=== PATIENT | female | born 2005 | race Caucasian/White ===

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

== ENCOUNTER 2023-08-31 12:41 | Emergency (ER) | payer OTHER, SELFPAY ==
--- NOTE | 2023-08-31 12:56 | ED.FEMALEGU ---
HPI - Female Genitourinary General Chief complaint: Urogenital-Female Stated complaint: Uti symptoms Time Seen by Provider: 08/31/23 13:11 Source: patient, RN notes reviewed and old records reviewed Mode of arrival: ambulatory Limitations: no limitations History of Present Illness HPI Narrative: 18 year old female who presents to [facility] care with complaints of urinary frequency ,urgency, burning with urination for the past week with some intermittent itchy sensation of vagina and painful sex.. Patient reports no known fevers, chills or sweats, denies any nausea or vomiting or any back pain or any suprapubic tenderness. Patient reports no concern for STD has been with same partner. MD elicited complaint: UTI Onset (ago): week(s) (1) Location of symptoms: urethra and vaginal Severity: moderate Severity scale (1-10): 5 Quality of pain: burning Urinary symptoms: Dysuria, Urgency and Frequency Treatment prior to arrival: none Sexual activity: Yes Related Data Allergies Allergy/AdvReac Type Severity Reaction Status Date / Time No Known Drug Allergies Allergy Unknown Other Verified 08/31/23 12:59 Review of Systems Review of Systems: CONSTITUTIONAL: Denies fever, chills, or sweats. CARDIOVASCULAR: Denies chest pain, palpitations, or edema. RESPIRATORY: Denies cough or dyspnea. GASTROINTESTINAL: Denies abdominal pain, nausea, vomiting, or diarrhea. GENITOURINARY: Reports dysuria, frequency, urgency. Denies flank pain or hematuria.reports some vaginal itching and painful intercourse SKIN: Denies rash or itching. MUSCULOSKELETAL: Denies back pain or myalgia. Denies CVA tenderness NEUROLOGIC: Denies headache All systems reviewed & are unremarkable except as noted in HPI and below PMFSH Past Medical History Medical History (Updated 08/31/23 @ 18:56 by Josseline York NP) Anxiety Arrhythmia as child cleared by [facility] Asthma age 1 1/2 Ear infection Meningitis Surgical History Surgical History (Updated 08/31/23 @ 18:55 by Josseline York NP) History of placement of ear tubes Social History Social History Smoking status: Current every day smoker Tobacco type: e-cigarettes/vaping Alcohol intake: never Substance use type: does not use Gender identity (if verbalized by the patient): Female Comments At time of signature, agree with nursing past medical, surgical, social and family history. There is no relevant family history pertinent to the presenting complaint Exam Narrative: GENERAL: Well-appearing, well-nourished, and in no acute distress. HEAD: Normocephalic, atraumatic. NECK: Supple.no lymphadenopathy CHEST: Clear to auscultation. No respiratory distress.SAO2 99% on room air HEART: Regular rate and rhythm. No murmur heard. Normal peripheral pulses. ABDOMEN: Soft, nontender, nondistended, normal active bowel sounds. No CVA tenderness, vaginal itchy , burning with urination, urinary frequency and urgency foul odor of urine noted see urine report. EXTREMITIES: Normal range of motion. No edema. SKIN: Warm, dry, no rash. NEURO: No focal deficits. Alert and oriented x3. Course Course Emergency Course: Patient is aware of diagnosis, understands and agrees to treatment plan.? Anticipatory guidance given.? Patient agrees to follow-up as directed and is aware of reasons to seek care at the emergency department. Portions of this record may have been created with voice recognition software Level of Care: Express Care Visit Vital Signs Vital signs: Vital Signs Temperature 36.7 C 08/31/23 13:01 Pulse Rate 85 08/31/23 13:01 Respiratory Rate 20 08/31/23 13:01 Blood Pressure 113/81 08/31/23 13:01 Pulse Oximetry 99 08/31/23 13:01 Temperature 36.7 C 08/31/23 13:01 Pulse Rate 85 08/31/23 13:01 Respiratory Rate 20 08/31/23 13:01 Blood Pressure 113/81 08/31/23 13:01 Pulse Oximetry 99 08/31/23 13:01
[2023-08-31 13:01] VITALS: BP 113/81; PULSE 85; RESP 20; TEMP 36.7; O2SAT 99
== END 2023-08-31 13:31 | disposition home or self-care (01) ==
PROVIDERS: Emergency Provider Registered Nurse
DX: N39.0 Urinary tract infection, site not specified (principal); B96.20 Unspecified Escherichia coli [E. coli] as the cause of diseases classified elsewhere; F17.290 Nicotine dependence, other tobacco product, uncomplicated
CPT/HCPCS: 81003; 87077; 87086; 87186; 99213; G0463

== ENCOUNTER 2023-10-20 01:25 | Emergency (ER) | payer OTHER, SELFPAY ==
--- NOTE | ~2023-10-20 | XR_ITS ---
Portable chest x-ray Comparison: None Clinical History: Palpitations Findings: Lungs are clear, without focal consolidation or pleural effusion. Cardiomediastinal silho uette is unremarkable. Bones and soft tissues are unremarkable. Impression: Normal chest. Reviewed, dictated and finalized at location . Impression: Normal chest.
[2023-10-20 01:37] VITALS: BP 94/76; PULSE 108; RESP 16; TEMP 36.6; O2SAT 100
--- NOTE | 2023-10-20 01:44 | PC.NURSE ---
Patient states that she used her friends THC vape, but not sure where her friend got the vape from. Patient states that she has used the vape before.
--- NOTE | 2023-10-20 02:06 | ECG_ITS ---
SEE SCANNED COPY FOR CONFIRMED REPORT MTDD
[2023-10-20] MEDS: LORazepam (*CRX) 1 MG TABLET PO (02:15)
--- NOTE | 2023-10-20 02:32 | ED.GENADULT ---
HPI - General Adult General Chief complaint: Anxiety Stated complaint: panic attack Time Seen by Provider: 10/20/23 01:59 History of Present Illness HPI narrative: this is a 18-year-old female with a history of anxiety presenting for a panic attack. Patient was smoking marijuana when she started developed palpitations and shortness of breath. This feels similar to previous anxiety attacks she has had. Symptoms have improved but she still feels very anxious. Patient denies current chest pain, shortness of breath, lower extremity edema or DVT/PE. Related Data Allergies Allergy/AdvReac Type Severity Reaction Status Date / Time No Known Drug Allergies Allergy Unknown Other Verified 08/31/23 12:59 [facility] Past Medical History Medical History Anxiety Arrhythmia as child cleared by [facility] Ast[facility] age 1 1/2 Ear infection Meningitis Surgical History Surgical History History of placement of ear tubes Social History Social History Smoking status: Current every day smoker Tobacco type: e-cigarettes/vaping Alcohol intake: never Substance use type: marijuana Gender identity (if verbalized by the patient): Female Exam Narrative: APPEARANCE: anxious Head: atraumatic. EYES: EOMI, NOSE: Atraumatic NECK: Trachea midline RESPIRATORY: No increased rate of breathing CTAB CARDIOVASCULAR: RRR, ABDOMINAL: Non-distended MUSCULOSKELETAl: No obvious deformities NEURO: Alert. Moving 4/4 extremities SKIN:: Warm, dry. Normal color PSYCHIATRIC: anxious appearing Course Vital Signs Vital signs: Vital Signs Temperature 97.9 F 10/20/23 01:37 Pulse Rate 108 H 10/20/23 01:37 Respiratory Rate 16 10/20/23 01:37 Blood Pressure 94/76 L 10/20/23 01:37 Pulse Oximetry 100 10/20/23 01:37 Temperature 97.9 F 10/20/23 01:37 Pulse Rate 108 H 10/20/23 01:37 Respiratory Rate 16 10/20/23 01:37 Blood Pressure 94/76 L 10/20/23 01:37 Pulse Oximetry 100 10/20/23 01:37 Medical Decision Making MDM Narrative Medical decision making narrative: -Course: 18-year-old female presenting with anxiety attack after smoking marijuana. Chest x-ray and EKG unremarkable. Given Ativan with improvement symptoms. Patient discharge instructions stop smoking marijuana. Primary care follow-up return precautions given. -DDX includes but is not limited to: Marijuana overdose, anxiety, panic disorder -Co-morbidities complicating care: anxiety and depression -Independent interpretation of studies: EKG reviewed. Chest x-ray unremarkable. -Interventions: 1 mg p.o. Ativan -Shared decision making / Disposition: discharge Vital Signs Vital Signs: Vital Signs Temperature 97.9 F 10/20/23 01:37 Pulse Rate 108 H 10/20/23 01:37 Respiratory Rate 16 10/20/23 01:37 Blood Pressure 94/76 L 10/20/23 01:37 Pulse Oximetry 100 10/20/23 01:37 Temperature 97.9 F 10/20/23 01:37 Pulse Rate 108 H 10/20/23 01:37 Respiratory Rate 16 10/20/23 01:37 Blood Pressure 94/76 L 10/20/23 01:37 Pulse Oximetry 100 10/20/23 01:37 Discharge Plan Discharge Clinical Impression: Anxiety Patient Disposition: Home, Self-Care Condition: Stable Instructions: Antibiotic Form, Anxiety (ED) Additional Instructions: please follow-up with your primary care physician. Return if you develop another panic attack or thoughts of harming herself. Please refrain from using marijuana as it does not seem that you tolerate it very well. Prescriptions: No Action nitrofurantoin monohyd/m-cryst [Macrobid] 100 mg capsule 100 mg PO Q12H 7 Days Qty: 14 0RF Rx Instructions: must administer with a meal/food fluconazole 150 mg tablet 150 mg PO ONCE Qty: 2 0RF Rx Instructions: take one tab then repeat in 72 hours i
[2023-10-20 02:35] VITALS: BP 131/87; PULSE 100; RESP 16; O2SAT 100
== END 2023-10-20 02:39 | disposition home or self-care (01) ==
PROVIDERS: Emergency Provider Emergency Medicine
DX: F41.9 Anxiety disorder, unspecified (principal); J45.909 Unspecified asthma, uncomplicated; F17.290 Nicotine dependence, other tobacco product, uncomplicated
CPT/HCPCS: 71045; 93005; 99283; A9270

== ENCOUNTER 2023-11-22 15:59 | Outpatient (CLI) | payer OTHER, SELFPAY ==
[2023-11-22 19:26] LABS: Basophils Percent Auto 0.3 % (0.2-1.2); Eosinophils Absolute Auto 0.1 K/mm3 (0-0.3); Eosinophils Percent Auto 0.5 % (0-4.4); Hematocrit 44.7 % (37.0-47.0); Immature Granulocyte Absolute 0.02 K/mm3 (0.00-0.031); Immature Granulocyte Percent A 0.2 % (0-0.5); Lymphocytes Absolute Auto 1.81 K/mm3 (0.9-3.2); Lymphocytes Percent Auto 19.8 % (18.3-44.2); Mean Corpuscular HGB Conc 33.6 g/dl (32-36); Mean Corpuscular Hemoglobin 32.1 pg (26-34); Mean Corpuscular Volume 95.5 fl (80-100); Mean Platelet Volume 10.8 fl (7.4-10.4); Monocytes Absolute Auto 0.6 K/mm3 (0.1-0.6); Monocytes Percent Auto 6.9 % (2.6-8.5); Neutrophils Absolute Auto 6.6 K/mm3 (1.3-6.7); Neutrophils Percent Auto 72.3 % (45.5-73.1); Platelet Count Result 233 k/mm3 (150-375); Red Blood Count 4.68 M/mm3 (4.2-5.4); Red Cell Distribution Width 12.6 % (11.5-14.5); White Blood Count 9.1 K/mm3 (4.5-10.0)
[2023-11-22 19:46] LABS: Thyroid Stimulating Hormone Reflex 0.668 uIU/mL (0.465-4.68)
== END 2023-11-22 16:00 | disposition home or self-care (01) ==
LOC: ANHGOSHLAB 16:00
PROVIDERS: Visit Provider Emergency Medicine
DX: F41.9 Anxiety disorder, unspecified (principal)
CPT/HCPCS: 36415; 84443; 85025

== ENCOUNTER 2024-04-17 09:57 | Outpatient (CLI) | payer OTHER, SELFPAY ==
[2024-04-17 15:29] LABS: Alanine Aminotransferase 9 U/L (6-35); Albumin Level 4.4 g/dL (3.5-5.1); Alkaline Phosphatase 53 U/L (38-126); Anion Gap 6 mmol/L (4-12); Aspartate Amino Transferase 46 U/L (14-36); Bilirubin,Total 1.2 mg/dL (0.2-1.3); Blood Urea Nitrogen 9 mg/dL (7-17); Carbon Dioxide 28 mmol/L (22-30); Chloride 103 mmol/L (98-107); Cholesterol 154 mg/dL (0-200); Estimated Glomerular Filt Rate > 60; Glucose 78 mg/dL (65-110); HDL Direct 58 mg/dL; Potassium 3.6 mmol/L (3.4-5.0); Sodium 137 mmol/L (137-145); Triglycerides 53 mg/dL (<150)
[2024-04-17 15:40] LABS: LDL Cholesterol Direct 65 mg/dL
[2024-04-17 16:54] LABS: Free T4 Free Thyroxine 1.34 ng/mL (0.78-2.19)
[2024-04-19 07:28] LABS: Thyroid Peroxidase Antibodies <1 IU/mL (<9)
== END 2024-04-17 09:58 | disposition home or self-care (01) ==
LOC: ANHGOSHLAB 09:58
PROVIDERS: PCP Nurse Practitioner Family; Visit Provider Nurse Practitioner Family
DX: F41.9 Anxiety disorder, unspecified (principal); Z76.89 Persons encountering health services in other specified circumstances
CPT/HCPCS: 36415; 80053; 80061; 84439; 84443; 86376

== ENCOUNTER 2024-06-14 14:19 | Outpatient (CLI) | payer OTHER, SELFPAY ==
[2024-06-14 20:43] LABS: Beta HCG Quantitative < 2.39 mIU/ML
== END 2024-06-14 14:20 | disposition home or self-care (01) ==
LOC: ANHGOSHLAB 14:22
PROVIDERS: PCP Nurse Practitioner Family; Visit Provider Obstetrics & Gynecology
DX: N91.2 Amenorrhea, unspecified (principal)
CPT/HCPCS: 36415; 84702

== ENCOUNTER 2024-09-08 08:15 | Emergency (ER) | payer OTHER, SELFPAY ==
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
--- OUTSIDE RECORDS SUMMARY | 2024-09-08 08:18 | XMS_ITS | Clinical Summary ---
Author Organization [facility] Address [address] [place] [id number] Care Team Providers Care Coal Tram Driver Name Role Phone Crystal Andrade MD Primary Care Provider [phone] Allergies No known active allergies Medications escitalopram (LEXAPRO) 10 mg tablet Take 10 mg by mouth daily Active Active Problems No known active problems Surgical History Surgery Date Site/Laterality Comments NO PAST SURGERIES Medical History Medical History Date Comments Depression Social History Tobacco Use Types Packs/Day Years Used Date Smoking Tobacco: Never Smokeless Tobacco: Never Personal Safety Answer Date Recorded Getting School Help Needed Not on file 08/11 Comments Unknown Sex and Gender Information Value Date Recorded Sex Assigned at Not on file 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 Gender Identity Not on file Sexual Orientation Not on file Obstetrics History Last Filed Vital Signs Vital Sign Reading Time Taken Comments Blood Pressure - - Pulse - - Temperature - - Respiratory Rate - - Oxygen Saturation - - Inhaled Oxygen Concentration - - Weight 68 kg (150 lb) 2021 9:23 AM CDT Height 165.1 cm (5' 5 ) 2021 9:23 AM CDT Body Mass Index 24.96 2021 9:23 AM CDT Plan of Treatment Not on file [place] [address] [place] [address] [facility] Care Teams Coal Tram Driver Relationship Specialty Start Date End Date Crystal Andrade MD [address] [place] [place] [address] PCP - General 09/29/16
--- OUTSIDE RECORDS SUMMARY | 2024-09-08 08:18 | XMS_ITS | Referral Summary ---
Author Organization [facility] Address [address] [place] [address] Care Team Providers Care Supervisor Marble Name Role Phone Crystal Andrade MD Primary Care Provider [phone] Allergies No known active allergies Medications escitalopram (LEXAPRO) 10 mg tablet Take 10 mg by mouth daily Active Active Problems No known active problems Social History Tobacco Use Types Packs/Day Years Used Date Smoking Tobacco: Never Smokeless Tobacco: Never Personal Safety Answer Date Recorded Getting School Help Needed Not on file 08/11 Comments Unknown Sex and Gender Information Value Date Recorded Sex Assigned at Not on file 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
[2024-09-08 08:25] VITALS: BP 112/70; PULSE 97; RESP 18; TEMP 36.4; O2SAT 100
[2024-09-08 08:44] LABS: EDSTREPNEGPOS1 Negative (Negative)
--- NOTE | 2024-09-08 08:44 | ED_ITS ---
HPI - URI/Sore Throat General Chief Complaint: Upper Respiratory Infection Stated Complaint: throat pain Time Seen by Provider: 09/08/24 08:30 Source: patient and RN notes reviewed Mode of arrival: ambulatory Limitations: no limitations History of Present Illness HPI Narrative: Patient presents today with a one-week history of intermittent sore throat with postnasal drip, congestion that is worse when lying flat. Denies cough, fever, shortness of breath. She is currently pain-free. She has tried ibuprofen with some relief. Pain in the throat increases with swallowing. She does have some seasonal allergies but does not currently take any medication. Related Data Home Medications ?Medication ?Instructions ?Recorded ?Confirmed ?Last Taken ?Type escitalopram oxalate 10 mg tablet 20 mg PO DAILY 04/17/24 05/14/24 Unknown History buspirone 5 mg tablet mg 09/08/24 Unknown History Allergies Allergy/AdvReac Type Severity Reaction Status Date / Time No Known Drug Allergies Allergy Unknown Other Verified 09/08/24 08:29 Review of Systems Review of Systems: CONSTITUTIONAL: Denies body aches, fever, chills, or sweats. EYES: Denies visual changes, redness, or discharge. ENT: Denies rhinorrhea, or otalgia.+ congestion, sore throat, postnasal drip CARDIOVASCULAR: Denies chest pain, palpitations, or edema. RESPIRATORY: Denies cough or dyspnea. GASTROINTESTINAL: Denies abdominal pain, nausea, vomiting, or diarrhea. GENITOURINARY: Denies dysuria or hematuria. SKIN: Denies rash, itching, or wounds. MUSCULOSKELETAL: Denies back pain, joint pain, or myalgia. NEUROLOGIC: Denies headache, numbness, tingling, or weakness. PSYCH: Denies depression or anxiety. REPLACED BY [facility] Past Medical History Medical History Ear infection Anxiety Asthma age 1 1/2 Meningitis Arrhythmia as child cleared by [facility] Surgical History Surgical History History of placement of ear tubes Social History Social History Social History: Caffeine-rarely Smoking status: Current every day smoker Tobacco type: e-cigarettes/vaping Alcohol intake: never Substance use: never Do You Feel Safe in your Home?: Yes Lack of Transportation: No Lack of Food: Never True Current Housing: Decline to Answer Concerned About Future Housing: Decline to Answer Difficulty Paying Gas/Electric Bills: Decline to Answer Difficulty Paying for Meds: Decline to Answer Currently Unemployed: Decline to Answer Education: Decline to Answer Difficulty w/ Childcare or Family Care: Decline to Answer Living arrangements: with family Occupation/Education: occupation Gender identity (if verbalized by the patient): Female Sexual Orientation (if Verbalized by the Patient): Straight or Heterosexual Spiritual care concerns: No Agree to blood products: Yes Comments At time of signature, I have reviewed and agree with nursing past medical, surgical, social and family history unless otherwise noted. Please see nursing chart for further information. There is no relevant family history pertinent to the presenting complaint Exam Narrative: GENERAL: Well-appearing, well-nourished, and in no acute distress. HEAD: Normocephalic, atraumatic. EYES: EOMI. No redness or drainage. Conjunctivae normal. ENT: Mucous membranes pink and moist. Nares clear. No rhinorrhea. TMs normal bilaterally. Throat normal with small amount of clear postnasal drainage. Uvula midline. NECK: Normal AROM. Supple. No lymphadenopathy. CHEST: No respiratory distress. Clear to auscultation. HEART: Regular rate and rhythm. No murmur appreciated. EXTREMITIES: Normal range of motion. No edema. SKIN: Warm, dry, no rash. Capillary refill normal. Normal skin turgor. NEURO: No focal deficits. Alert and oriented x3. Gait steady. PSYCH: Normal affect. No signs of depression or anxiety. Course Course Level of Care: Express Care Visit Vital Signs Vital signs: Vital Signs Temperature 97.5 F L 09/08/24 08:25 Pulse Rate 97 09/08/24 08:25 Respiratory Rate 18 09/08/24 08:25 Blood Pressure 112/70 09/08/24 08:25 Pulse Oximetry 100 09/08/24 08:25 Oxygen Delivery Room Air 09/08/24 08:25 Temperature 97.5 F L 09/08/24 08:25 Pulse Rate 97 09/08/24 08:25 Respiratory Rate 18 09/08/24 08:25 Blood Pressure 112/70 09/08/24 08:25 Pulse Oximetry 100 09/08/24 08:25 Oxygen Delivery Room Air 09/08/24 08:25 Reviewed MDM - URI/Sore Throat MDM Narrative Medical decision making narrative: Rapid strep negative. Culture pending. Symptoms likely due to seasonal allergies. Recommend starting a daily antihistamine and/or Flonase and continuing ibuprofen if needed. Patient agrees with plan. Anticipatory guidance given. Differential Diagnosis Differential diagnosis: Likely upper respiratory infection, otitis media, viral infection, pharyngitis and other (Strep throat, seasonal allergies) Lab Data Attestation: I reviewed the patient's lab results. Lab results narrative: Rapid strep negative Critical Care Time Critical Care Time Critical Care Time: No Discharge Plan Discharge Clinical Impression: Seasonal allergies Patient Disposition: Home Condition: Stable Instructions: Allergies (ED) Additional Instructions: Your rapid strep is negative today. It will be sent to the hospital for culture and you will be notified of any positive results. Symptoms are likely due to seasonal allergies. Please start a daily antihistamine such as Zyrtec, Claritin, or Myrna. Consider an intranasal steroid such as Flonase. Follow- up with your PCP in 1 week if symptoms persist. Go to the ER if symptoms worsen such as shortness of breath or difficulty swallowing. Patient Language: Portuguese Prescriptions: No Action buspirone 5 mg tablet escitalopram oxalate 10 mg tablet 20 mg PO DAILY Follow-up/Referrals: Winifred Vance APRN [Primary Care Provider] - Time of Disposition: 08:47
== END 2024-09-08 08:49 | disposition home or self-care (01) ==
PROVIDERS: Emergency Provider Nurse Practitioner; PCP Nurse Practitioner Family
DX: J30.2 Other seasonal allergic rhinitis (principal); F17.290 Nicotine dependence, other tobacco product, uncomplicated; F41.9 Anxiety disorder, unspecified; Z86.61 Personal history of infections of the central nervous system
CPT/HCPCS: 87081; 87880; 99213; G0463

== ENCOUNTER 2025-02-17 09:12 | Outpatient (CLI) | payer OTHER, SELFPAY ==
--- OUTSIDE RECORDS SUMMARY | 2025-02-17 10:00 | XMS_ITS | Clinical Summary ---
Author Organization 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 Gender Identity Not on file Sexual Orientation Not on file Obstetrics History Last Filed Vital Signs Vital Sign Reading Time Taken Comments Blood Pressure - - Pulse - - Temperature - - Respiratory Rate - - Oxygen Saturation - - Inhaled Oxygen Concentration - - Weight 68 kg (150 lb) 2021 9:23 AM CDT Height 165.1 cm (5' 5) 2021 9:23 AM CDT Body Mass Index 24.96 2021 9:23 AM CDT Plan of Treatment Not on file Insurance [place] [address] [facility] Care Teams Byproducts Pump Operator Relationship Specialty Start Date End Date Crystal Andrade MD [address] [place] [address] PCP - General 09/29/16
[2025-02-17 13:07] LABS: Alanine Aminotransferase 10 U/L (6-35); Albumin Level 4.1 g/dL (3.5-5.1); Alkaline Phosphatase 66 U/L (38-126); Anion Gap 7 mmol/L (4-12); Aspartate Amino Transferase 35 U/L (14-36); Bilirubin,Total 1.0 mg/dL (0.2-1.3); Blood Urea Nitrogen 7 mg/dL (7-17); Calcium 8.6 mg/dL (8.4-10.2); Carbon Dioxide 27 mmol/L (22-30); Chloride 102 mmol/L (98-107); Estimated Glomerular Filt Rate > 60; Glucose 87 mg/dL (65-110); Potassium 3.3 mmol/L (3.4-5.0); Sodium 136 mmol/L (137-145); Total Protein 8.0 g/dL (6.3-8.2)
[2025-02-17 13:13] LABS: Iron 60 ug/dL (37-170)
[2025-02-17 13:32] LABS: Percent Iron Saturation 21 % (20-50)
[2025-02-17 13:50] LABS: Hematocrit 39.5 % (37.0-47.0); Hemoglobin 12.7 g/dL (12.0-15.0); Immature Granulocyte Percent A 0.3 % (0-0.5); Lymphocytes Absolute Auto 1.97 K/mm3 (0.9-3.2); Mean Corpuscular HGB Conc 32.2 g/dl (32-36); Mean Corpuscular Hemoglobin 30.3 pg (26-34); Mean Corpuscular Volume 94.3 fl (80-100); Nucleated Red Blood Cells Absolute Auto 0.000 K/mm3 (0.0-0.012); Nucleated Red Blood Cells Perc 0.0 % (0.0-0.2); Platelet Count Result 218 k/mm3 (150-375); Red Blood Count 4.19 M/mm3 (4.2-5.4); White Blood Count 10.1 K/mm3 (4.5-10.0)
[2025-02-17 13:54] LABS: Ferritin 72.20 ng/mL (6.24-137)
== END 2025-02-17 09:13 | disposition home or self-care (01) ==
LOC: ANHGOSHLAB 09:13
PROVIDERS: PCP Nurse Practitioner Family; Visit Provider Nurse Practitioner Family
DX: F41.9 Anxiety disorder, unspecified (principal); Z02.0 Encounter for examination for admission to educational institution
CPT/HCPCS: 36415; 80053; 82728; 83540; 83550; 85025; 86480